=== PATIENT | female | born 2000 | race African-American/Black ===

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

== ENCOUNTER 2019-09-27 09:42 | Emergency (ER) | payer BC, OTHER ==
--- NOTE | 2019-09-27 11:02 | ED ---
Upper Extremity HPI - General Chief Complaint: Extremity Injury, Upper Stated Complaint: shoulder pain Time Seen by Provider: 09/27/19 10:06 Source: patient Mode of arrival: ambulatory Limitations: no limitations - History of Present Illness Initial Comments: Patient is a 19-year-old female presenting to the emergency Department with complaints of right shoulder pain since this morning. Patient states she woke up, stretched her arms overhead and felt a pop in her right shoulder. Patient states she went to put her shoulder down and felt another pop. Patient states she has pain in her right shoulder with any movement. She states the pain travels up into her right upper trapezius, right side of her neck. She denies any previous injuries or surgeries of her right shoulder. She is right-hand dominant. Denies any fever or chills. She has no further complaints. Upon arrival to the ER, her vitals are stable. - Related Data Home Medications Medication Instructions Recorded Confirmed Cetirizine HCl [Zyrtec] 10 mg PO DAILY PRN 08/20/13 08/02/17 Montelukast [Singulair] 10 mg PO DAILY 08/20/13 08/02/17 PARoxetine [Paxil] 10 mg PO DAILY 08/02/17 08/02/17 Previous Rx's Medication Instructions Recorded Cephalexin [Keflex] 500 mg PO Q6HR #40 cap 07/16/17 predniSONE [Deltasone] 20 mg PO BID #8 tab 08/03/17 Acetaminophen-Codeine 300-30mg 1 tab PO Q6H PRN 3 Days #12 tablet 09/30/18 [Tylenol w/codeine #3] hydrOXYzine HCL [Atarax] 25 mg PO QID PRN #30 tab 09/30/18 Allergies Allergy/AdvReac Type Severity Reaction Status Date / Time No Known Allergies Allergy Verified 09/27/19 10:04 Review of Systems ROS Statement: Those systems with pertinent positive or pertinent negative responses have been documented in the HPI. ROS Other: All systems not noted in ROS Statement are negative. Past Medical History Past Medical History: Asthma Additional Past Medical History / Comment(s): eczema, psoriasis History of Any Multi-Drug Resistant Organisms: MRSA Date of last positivie culture/infection: 07/16/17 MDRO Source:: LEG Past Surgical History: Adenoidectomy, Tonsillectomy Past Psychological History: ADD/ADHD, Anxiety Past Alcohol Use History: None Reported Past Drug Use History: None Reported General Exam - General Exam Comments Initial Comments: GENERAL: Patient is well-developed and well-nourished. Patient is nontoxic and in no acute distress. HEAD: Atraumatic, normocephalic. EYES: Pupils equal round and reactive to light, extraocular movements intact, sclera anicteric, conjunctiva are normal. Eyelids were unremarkable. ENT: TMs normal, nares patent, oropharynx clear without exudates. Moist mucous membranes. NECK: Normal range of motion, supple without lymphadenopathy or JVD. LUNGS: Unlabored respirations. Breath sounds clear to auscultation bilaterally and equal. No wheezes rales or rhonchi. HEART: Regular rate and rhythm without murmurs, rubs or gallops. ABDOMEN: Soft, nontender, normoactive bowel sounds. No guarding, no rebound. No masses appreciated. : Deferred MUSCULOSKELETAL: Normal extremities with adequate strength and normal range of motion, no pitting or edema. No clubbing or cyanosis. Patient has mild pain with palpation of the right upper trapezius, right cervical paraspinals, right posterior shoulder. NEUROLOGICAL: Patient is alert and oriented x 3. Motor and sensory are also intact. Cranial nerves II through XII grossly intact. Normal speech, normal gait. Symmetrical smile. PSYCH: Normal mood, normal affect. SKIN: Warm, Dry, normal turgor, no rashes or lesions noted. Limitations: no limitations Course Vital Signs 09/27/19 09/27/19 09/27/19 10:01 10:04 11:04 Temperature 98.5 F Pulse Rate 87 Respiratory 16 20 20 Rate Blood Pressure 125/83 O2 Sat by Pulse 98 Oximetry Medical Decision Making - Medical Decision Making Patient is a 19-year-old female with right shoulder pain after stretching this morning. No previous injuries or surgeries. X-rays reveal no acute fractures dislocations. Patient this is most likely muscle skeletal in nature. Recommen ded heat to the area, gentle stretching. She is stable for discharge and she is in agreement with this plan of care. Patient will follow up with her PCP if symptoms persist. Disposition Clinical Impression: Right shoulder strain Disposition: HOME SELF-CARE Condition: Stable Instructions (If sedation given, give patient instructions): Muscle Strain (ED) Additional Instructions: Please return to the Emergency Department if symptoms worsen or any other concerns. Use heat to the area, gentle stretching, Tylenol or Motrin as needed for discomfort. Is patient prescribed a controlled substance at d/c from ED?: No Referrals: None,Stated [Primary Care Provider] - 1-2 days
[2019-09-27 12:00] VITALS: BP 129/66; PULSE 72; RESP 18; TEMP 98.3
--- NOTE | 2019-09-27 12:31 | XR ---
EXAMINATION TYPE: XR shoulder complete RT DATE OF EXAM: 09/27/2019 CLINICAL HISTORY: Popping injury with pain. TECHNIQUE: Three views of the right shoulder are obtained. COMPARISON: None. FINDINGS: There is no acute fracture evident in the right shoulder. Inferior margin distal clavicle roughly 3 mm superior to inferior margin of distal acromion. Glenohumeral joint maintained. The visu alized ribs are intact and unremarkable. IMPRESSION: There is no acute fracture in the right shoulder. Possible AC joint subluxation injury.
== END 2019-09-27 12:00 | disposition home or self-care (01) ==
LOC: EC 09:42
DX: S46.911A Strain of unspecified muscle, fascia and tendon at shoulder and upper arm level, right arm, initial encounter (principal); J45.909 Unspecified asthma, uncomplicated; F41.9 Anxiety disorder, unspecified; Z79.899 Other long term (current) drug therapy; X50.1XXA Overexertion from prolonged static or awkward postures, initial encounter
CPT/HCPCS: 99283

== ENCOUNTER 2020-12-22 07:35 | Emergency (ER) | payer BC, OTHER ==
[2020-12-22 07:41] VITALS: BP 133/82; PULSE 69; RESP 20; TEMP 98.2
[2020-12-22] MEDS ORDERED: hydrOXYzine HCL 25 MG TAB PO STA (08:08)
[2020-12-22] MEDS ORDERED: methylPREDNISolone SOD SUCCI 125 MG/2 ML VIAL IM ONE (08:08)
--- NOTE | 2020-12-22 08:16 | ED ---
Skin/Abscess/FB HPI - General Chief complaint: Skin/Abscess/Foreign Body Stated complaint: Eczema Flare-Up Time Seen by Provider: 12/22/20 07:43 Source: patient, RN notes reviewed Mode of arrival: ambulatory Limitations: no limitations - History of Present Illness Initial comments: This a 20-year-old female presents emergency Department with chief complaint of eczema. Patient states she had a severe outbreak of last 3 weeks. Patient states that she was diagnosed years ago with psoriasis, eczema. Patient states that she's been using motions with no relief. Patient states that she has not seen anybody for this at this time. - Related Data Home Medications Medication Instructions Recorded Confirmed Cetirizine HCl [Zyrtec] 10 mg PO DAILY PRN 08/20/13 08/02/17 Montelukast [Singulair] 10 mg PO DAILY 08/20/13 08/02/17 PARoxetine [Paxil] 10 mg PO DAILY 08/02/17 08/02/17 Previous Rx's Medication Instructions Recorded Cephalexin [Keflex] 500 mg PO Q6HR #40 cap 07/16/17 predniSONE [Deltasone] 20 mg PO BID #8 tab 08/03/17 Acetaminophen-Codeine 300-30mg 1 tab PO Q6H PRN 3 Days #12 tablet 09/30/18 [Tylenol w/codeine #3] hydrOXYzine HCL [Atarax] 25 mg PO QID PRN #30 tab 09/30/18 hydrOXYzine HCL [Atarax] 25 mg PO TID PRN #15 tab 12/22/20 predniSONE 50 mg PO DAILY #5 tab 12/22/20 Allergies Allergy/AdvReac Type Severity Reaction Status Date / Time No Known Allergies Allergy Verified 12/22/20 07:41 Review of Systems ROS Statement: Those systems with pertinent positive or pertinent negative responses have been documented in the HPI. ROS Other: All systems not noted in ROS Statement are negative. Past Medical History Past Medical History: Asthma Additional Past Medical History / Comment(s): eczema, psoriasis History of Any Multi-Drug Resistant Organisms: MRSA Date of last positivie culture/infection: 07/16/17 MDRO Source:: LEG Past Surgical History: Adenoidectomy, Tonsillectomy Past Psychological History: ADD/ADHD, Anxiety Smoking Status: Never smoker Past Alcohol Use History: None Reported Past Drug Use History: None Reported General Exam Limitations: no limitations General appearance: alert, in no apparent distress Head exam: Present: atraumatic, normocephalic, normal inspection Respiratory exam: Present: normal lung sounds bilaterally. Absent: respiratory distress, wheezes, rales, rhonchi, stridor Cardiovascular Exam: Present: regular rate, normal rhythm, normal heart sounds. Absent: systolic murmur, diastolic murmur, rubs, gallop, clicks Neurological exam: Present: alert Skin exam: Present: warm, dry, intact, normal color, rash Course Vital Signs 12/22/20 07:37 Temperature 98.2 F Pulse Rate 69 Respiratory 20 Rate Blood Pressure 133/82 O2 Sat by Pulse 99 Oximetry Medical Decision Making - Medical Decision Making Patient was started on oral steroids advised follow-up with dermatology return parameters discussed. Disposition Clinical Impression: Eczema Disposition: HOME SELF-CARE Condition: Stable Instructions (If sedation given, give patient instructions): Eczema (ED) Additional Instructions: Please return to the Emergency Department if symptoms worsen or any other concerns. Prescriptions: hydrOXYzine HCL [Atarax] 25 mg PO TID PRN #15 tab PRN Reason: Itching predniSONE 50 mg PO DAILY #5 tab Is patient prescribed a controlled substance at d/c from ED?: No Referrals: None,Stated [Primary Care Provider] - 1-2 days Time of Disposition: 08:15
== END 2020-12-22 08:43 | disposition home or self-care (01) ==
LOC: EC 07:35
DX: L30.9 Dermatitis, unspecified (principal); J45.909 Unspecified asthma, uncomplicated; F90.9 Attention-deficit hyperactivity disorder, unspecified type; F41.9 Anxiety disorder, unspecified; Z90.89 Acquired absence of other organs
CPT/HCPCS: 99283; 96372; J2930

== ENCOUNTER 2021-07-21 00:09 | Emergency (ER) | payer OTHER ==
[2021-07-21] MEDS ORDERED: ACET/COD 300 MG/30 MG STARTER PACK 6 TAB BTL PO ONE (03:55)
[2021-07-21] MEDS ORDERED: Acetaminophen-Codeine 300-30mg TAB ONE (03:55)
--- NOTE | 2021-07-21 07:03 | XR ---
EXAM: XR Chest, 2 Views CLINICAL HISTORY: Left rib pain after chiropractor TECHNIQUE: Frontal and lateral views of the chest. COMPARISON: None FINDINGS: Hardware: None. Lungs/pleura: Normal. No focal consolidation. No pleural effusion or pneumothorax. Heart/mediastinum: Normal. No cardiomegaly. Soft tissues: Unremarkable. Bones: No acute fracture. Upper abdomen: Normal. IMPRESSION: No acute disease identified.
== END 2021-07-21 04:00 ==
LOC: EC 00:09
DX: S20.212A Contusion of left front wall of thorax, initial encounter (principal); J45.909 Unspecified asthma, uncomplicated; X58.XXXA Exposure to other specified factors, initial encounter
CPT/HCPCS: 71046; 99283

== ENCOUNTER 2021-11-24 16:29 | Emergency (ER) | payer OTHER ==
[2021-11-24 17:20] VITALS: TEMP 98
[2021-11-24] MEDS ORDERED: KETOROLAC 15 MG/ML 1 ML VIAL IM STA (17:27)
--- NOTE | 2021-11-24 20:16 | XR ---
EXAMINATION TYPE: XR ribs RT w pa chest xray DATE OF EXAM: 11/24/2021 COMPARISON: NONE HISTORY: Right rib pain TECHNIQUE: 5 views FINDINGS: Heart and mediastinum are normal. Lungs are clear. Diaphragm is normal. The right ribs appe ar intact. No pleural effusion or pneumothorax. No rib fracture seen. IMPRESSION: Normal chest. Normal right ribs.
--- NOTE | 2021-11-24 20:40 | ED ---
General Adult HPI - General Chief complaint: Back Pain/Injury Stated complaint: Rib pain Time Seen by Provider: 11/24/21 20:05 Source: patient, RN notes reviewed Mode of arrival: ambulatory Limitations: no limitations - History of Present Illness Initial comments: Patient is a 21-year-old -[place] female presenting to the emergency room with complaints of right-sided rib pain ongoing since a chiropractic adjustment approximately one week ago. She reports that the pain began right after the adjustment in his sharp stabbing in nature towards the upper part of her ribs into the scapular region. She denies any range of motion impairment. She does report some mild shortness of breath at times due to difficulty taking a deep breath secondary to the pain. She reports that this happened once before with the same chiropractor and he advised her that her ribs were "out of alignment" in that the pain should improve. He did not complete any x-rays at the time of adjustment or prior to. She denies any typical chest pain, shortness of breath not related to pain with inspiration, cough, abdominal pain, nausea, vomiting, fevers or chills. She is on to pick sent for severe eczema/psoriasis. She also has asthma and which she utilizes inhaler at times. - Related Data Home Medications Medication Instructions Recorded Confirmed Cetirizine HCl [Zyrtec] 10 mg PO DAILY PRN 08/20/13 08/02/17 Montelukast [Singulair] 10 mg PO DAILY 08/20/13 08/02/17 PARoxetine [Paxil] 10 mg PO DAILY 08/02/17 08/02/17 Previous Rx's Medication Instructions Recorded Cephalexin [Keflex] 500 mg PO Q6HR #40 cap 07/16/17 predniSONE [Deltasone] 20 mg PO BID #8 tab 08/03/17 Acetaminophen-Codeine 300-30mg 1 tab PO Q6H PRN 3 Days #12 tablet 09/30/18 [Tylenol w/codeine #3] hydrOXYzine HCL [Atarax] 25 mg PO QID PRN #30 tab 09/30/18 hydrOXYzine HCL [Atarax] 25 mg PO TID PRN #15 tab 12/22/20 predniSONE 50 mg PO DAILY #5 tab 12/22/20 Ibuprofen [Motrin] 800 mg PO Q8H PRN 7 Days #21 tab 11/24/21 Allergies Allergy/AdvReac Type Severity Reaction Status Date / Time No Known Allergies Allergy Verified 12/22/20 07:41 Review of Systems ROS Statement: Those systems with pertinent positive or pertinent negative responses have been documented in the HPI. ROS Other: All systems not noted in ROS Statement are negative. Past Medical History Past Medical History: Asthma Additional Past Medical History / Comment(s): eczema, psoriasis History of Any Multi-Drug Resistant Organisms: MRSA Date of last positivie culture/infection: 07/16/17 MDRO Source:: LEG Past Surgical History: Adenoidectomy, Tonsillectomy Past Psychological History: ADD/ADHD, Anxiety Smoking Status: Never smoker Past Alcohol Use History: None Reported Past Drug Use History: None Reported General Exam Limitations: no limitations Course Vital Signs 11/24/21 11/24/21 17:17 21:00 Temperature 98 F Pulse Rate 100 87 Respiratory 20 14 Rate Blood Pressure 144/80 145/97 O2 Sat by Pulse 99 100 Oximetry Medical Decision Making - Medical Decision Making 21-year-old -[place] female presenting to the emergency room with complaints of upper rib pain after chiropractic adjustment causing pain with inspiration creating increased shortness of breath. Will check chest x-ray including ribs and give Toradol for pain. Will monitor response and efficacy. Discussed chiropractic adjustment and previous response to adjustments. Pain improved with Toradol. X-ray of chest ribs negative for acute pathology. Findings discussed with patient and mother. Will discharge home with anti-inflammatory encouraged range of motion as tolerated and follow-up with her primary care provider. Encouraged possible alternative chiropractic therapy. Case discussed with Dr. Barrow. Disposition Clinical Impression: Rib pain on right side Disposition: HOME SELF-CARE Condition: Stable Instructions (If sedation given, give patient instructions): Costochondritis (ED) Additional Instructions: Please utilize ibuprofen as needed for pain. Range of motion as tolerated encouraged. Please follow-up with your primary care provider. Please return to the Emergency Department if symptoms worsen or any other concerns. Prescriptions: Ibuprofen [Motrin] 800 mg PO Q8H PRN 7 Days #21 tab PRN Reason: Pain Is patient prescribed a controlled substance at d/c from ED?: No Referrals: None,Stated [Primary Care Provider] - 1-2 days Time of Disposition: 21:11
[2021-11-24 21:00] VITALS: BP 145/97; PULSE 87; RESP 14
== END 2021-11-24 21:21 | disposition home or self-care (01) ==
LOC: EC 16:29
DX: R07.81 Pleurodynia (principal); J45.909 Unspecified asthma, uncomplicated
CPT/HCPCS: 71101; 99283; 96372; J1885

== ENCOUNTER → 2022-11-27 | Outpatient (CLI) | payer OTHER ==
[2022-11-27 20:44] LABS: Basophils # (A) 0.05 X 10*3/uL (0.00-0.10); Basophils % (A) 0.6 %; Eosinophils # (A) 1.58 X 10*3/uL (0.04-0.35); Eosinophils % (A) 20.3 %; HCT 39.5 % (37.2-46.3); HGB 12.4 d/dL (12.0-15.0); Lymphocytes # (A) 1.82 X 10*3/uL (0.90-5.00); Lymphocytes % (A) 23.4 %; MCH 25.8 pg (27.0-32.0); MCHC 31.4 d/dL (32.0-37.0); MCV 82.3 FL (80.0-97.0); Monocytes # (A) 0.62 X 10*3/uL (0.20-1.00); NRBC Per 100 WBC 0 X 10*3/uL (0.00-0.01); Neutrophils % (A) 47.6 %; Platelet Count 218 X 10*3/uL (140-440); RDW 14.9 % (11.5-14.5); WBC 7.78 X 10*3/uL (4.50-10.00)
[2022-11-27 21:24] LABS: ALT 29 U/L (8-44); AST 25 U/L (13-35); Albumin 4.3 d/dL (3.8-4.9); Albumin/Globulin Ratio 1.65 Ratio (1.60-3.17); Alkaline Phosphatase 85 U/L (41-126); BUN/Creat Ratio 16.12 Ratio (12.00-20.00); Blood Urea Nitrogen 12.9 mg/dL (9.0-27.0); Calcium 9.2 mg/dL (8.7-10.3); Carbon Dioxide 22.6 mmol/L (21.6-31.8); Chloride 107 mmol/L (96-109); Globulin 2.6 d/dL (1.6-3.3); Glucose 86 mg/dL (70-110); Potassium 4.4 mmol/L (3.5-5.5); Sodium 140 mmol/L (135-145); Total Bilirubin 0.3 mg/dL (0.3-1.2); Total Protein 6.9 d/dL (6.2-8.2)
[2022-11-27 22:29] LABS: Hepatitis A Antibody IgM Nonreactive; Hepatitis B Core IgM Nonreactive; Hepatitis B Surface Antigen Nonreactive; Hepatitis C IgG Antibody Nonreactive
== END | disposition home or self-care (01) ==
LOC: LABWHC1 15:04
PROVIDERS: ATTEND Dermatology
DX: L20.89 Other atopic dermatitis (principal); Z79.899 Other long term (current) drug therapy
CPT/HCPCS: 36415; 80053; 80074; 85025; 86480

== ENCOUNTER 2024-08-14 18:24 | Emergency (ER) | payer BC, OTHER ==
[2024-08-14 18:46] VITALS: BP 150/93; PULSE 87; RESP 16; TEMP 97.9
--- NOTE | 2024-08-14 19:48 | ED ---
Female Urogenital HPI - General Chief complaint: Urogenital Stated complaint: blood in urine Time Seen by Provider: 08/14/24 19:46 Source: patient, RN notes reviewed Mode of arrival: ambulatory Limitations: no limitations - History of Present Illness Initial comments: 24-year-old female presenting for hematuria x 1 day. Reports 3-4 episodes of blood near the end of urination today. Denies dysuria, urinary frequency, urinary urgency. Denies abdominal pain or flank pain. Denies vaginal bleeding or discharge. Last Menstrual Period: 08/06/24 - Related Data Home Medications Medication Instructions Recorded Confirmed Cetirizine HCl [Zyrtec] 10 mg PO DAILY PRN 08/20/13 08/02/17 Montelukast [Singulair] 10 mg PO DAILY 08/20/13 08/02/17 PARoxetine [Paxil] 10 mg PO DAILY 08/02/17 08/02/17 Previous Rx's Medication Instructions Recorded Cephalexin [Keflex] 500 mg PO Q6HR #40 cap 07/16/17 predniSONE [Deltasone] 20 mg PO BID #8 tab 08/03/17 Acetaminophen-Codeine 300-30mg 1 tab PO Q6H PRN 3 Days #12 tablet 09/30/18 [Tylenol w/codeine #3] hydrOXYzine HCL [Atarax] 25 mg PO QID PRN #30 tab 09/30/18 hydrOXYzine HCL [Atarax] 25 mg PO TID PRN #15 tab 12/22/20 predniSONE 50 mg PO DAILY #5 tab 12/22/20 Ibuprofen [Motrin] 800 mg PO Q8H PRN 7 Days #21 tab 11/24/21 Cephalexin [Keflex] 500 mg PO Q12H 7 Days #14 cap 08/14/24 Allergies Allergy/AdvReac Type Severity Reaction Status Date / Time No Known Allergies Allergy Verified 08/14/24 18:45 Review of Systems ROS Statement: Those systems with pertinent positive or pertinent negative responses have been documented in the HPI. ROS Other: All systems not noted in ROS Statement are negative. Past Medical History Past Medical History: Asthma Additional Past Medical History / Comment(s): eczema, psoriasis History of Any Multi-Drug Resistant Organisms: MRSA Date of last positivie culture/infection: 07/16/17 MDRO Source:: LEG Past Surgical History: Adenoidectomy, Tonsillectomy Past Psychological History: ADD/ADHD, Anxiety Smoking Status: Never smoker Past Alcohol Use History: None Reported Past Drug Use History: None Reported General Exam Limitations: no limitations General appearance: alert, in no apparent distress Head exam: Present: atraumatic, normocephalic, normal inspection GI/Abdominal exam: Present: soft, normal bowel sounds. Absent: distended, tenderness, guarding, rebound, rigid Back exam: Absent: CVA tenderness (R), CVA tenderness (L) Neurological exam: Present: alert, oriented X3 Psychiatric exam: Present: normal affect, normal mood Skin exam: Present: warm, dry, intact, normal color. Absent: rash Course Vital Signs 08/14/24 18:42 Temperature 97.9 F Pulse Rate 87 Respiratory 16 Rate Blood Pressure 150/93 O2 Sat by Pulse 100 Oximetry Medical Decision Making - Medical Decision Making Was pt. sent in by a medical professional or institution (, PA, MUSIC ARRANGER, urgent care, hospital, or intermediate...) When possible be specific @ -No Did you speak to anyone other than the patient for history (EMS, parent, family, police, friend...)? What history was obtained from this source @ -No Did you review nursing and triage notes (agree or disagree)? Why? @ -I reviewed and agree with nursing and triage notes Were old charts reviewed (outside hosp., previous admission, EMS record, old EKG, old radiological studies, urgent care reports/EKG's, intermediate records)? Report findings @ -No old charts were reviewed Differential Diagnosis (chest pain, altered mental status, abdominal pain women, abdominal pain men, vaginal bleeding, weakness, fever, dyspnea, syncope, headache, dizziness, GI bleed, back pain, seizure, CVA, palpatations, mental health, musculoskeletal)? @ -Urinary tract infection, kidney stone, interstitial nephritis, sexually transmitted infection EKG interpreted by me (3pts min.). @ -None X-rays interpreted by me (1pt min.). @ -None done CT interpreted by me (1pt min.). @ -None done U/S interpreted by me (1pt. min.). @ -None done What testing was considered but not performed or refused? (CT, X-rays, U/S, labs)? Why? @ -None What meds were considered but not given or refused? Why? @ -None Did you discuss the management of the patient with other professionals (professionals i.e. Dr., PA, MUSIC ARRANGER, lab, RT, psych nurse, social services director, clearance center manager, teacher, operational intelligence officer, case fitter)? Give summary @ -No Was smoking cessation discussed for >3mins.? @ -No Was critical care preformed (if so, how long)? @ -No Were there social determinants of health that impacted care today? How? (Homelessness, low income, unemployed, alcoholism, drug addiction, transportation, low edu. Level, literacy, decrease access to med. care, [facility], rehab)? @ -No Was there de-escalation of care discussed even if they declined (Discuss DNR or withdrawal of care, Hospice)? DNR status @ -No What co-morbidities impacted this encounter? (DM, HTN, Smoking, COPD, CAD, Cancer, CVA, ARF, Chemo, Hep., AIDS, mental health diagnosis, sleep apnea, morbid obesity)? @ -None Was patient admitted / discharged? Hospital course, mention meds given and route, prescriptions, significant lab abnormalities, going to OR and other pertinent info. @ -Discharge. 24-year-old female presenting for hematuria x 1 day. Denies urinary frequency, urgency, dysuria, abdominal pain, vaginal discharge, vaginal bleeding, or flank pain. Patient is afebrile with no CVA tenderness. Urina lysis remarkable for large amount of white blood cells and red blood cells and positive nitrite highly indicative of a urinary tract infection. Urine culture sent as well as urine chlamydia and urine gonorrhea. Patient will be provided with outpatient course of antibiotics. Appropriate return precautions and follow-up care discussed. Case was discussed with my ED attending Dr. Coy. Undiagnosed new problem with uncertain prognosis? @ -No Drug Therapy requiring intensive monitoring for toxicity (Heparin, Nitro, Insulin, Cardizem)? @ -No Were any procedures done? @ -No Diagnosis/symptom? @ -Urinary tract infection Acute, or Chronic, or Acute on Chronic? @ -Acute Uncomplicated (without systemic symptoms) or Complicated (systemic symptoms)? @ -Uncomplicated Side effects of treatment? @ -No Exacerbation, Progression, or Severe Exacerbation? @ -No Poses a threat to life or bodily function? How? (Chest pain, [place], [place], pneumonia, PE, COPD, DKA, ARF, appy, cholecystitis, CVA, Diverticulitis, Homicidal, Suicidal, threat to staff... and all critical care pts) @ -No - Lab Data Lab Results 08/14/24 08/14/24 Range/Units 20:19 20:19 Urine Color Yellow Urine Appearance Cloudy H (Clear) Urine pH 7.5 (5.0-8.0) Ur Specific [place] 1.025 (1.001-1.035) Urine Protein Trace H (Negative) Urine Glucose (UA) Negative (Negative) Urine Ketones Negative (Negative) Urine Blood Large H (Negative) Urine Nitrite Positive H (Negative) Urine Bilirubin Negative (Negative) Urine Urobilinogen 6.0 (<2.0) mg/dL Ur Leukocyte Esterase Moderate H (Negative) Urine RBC >182 H (0-5) /hpf Urine WBC 108 H (0-5) /hpf Ur Squamous Epith Cells 4 (0-4) /hpf Urine Bacteria Many H (None) /hpf Urine Mucus Moderate H (None) /hpf Urine HCG, Qual Not Detected (Not Detectd) Disposition Clinical Impression: Urinary tract infection Disposition: HOME SELF-CARE Condition: Stable Instructions (If sedation given, give patient instructions): Urinary Tract Infection in Women (ED) Additional Instructions: Take Keflex twice daily for 7 days. Drink plenty of fluids. Please return to the Emergency Department if symptoms worsen or any other concerns. Prescriptions: Cephalexin [Keflex] 500 mg PO Q12H 7 Days #14 cap Is patient prescribed a controlled substance at d/c from ED?: No Referrals: [facility] [NON-STAFF] - 1-2 days (Contact a primary care office to become established with a provider. ) [facility] [NON-STAFF] - 1-2 days None,Stated [Primary Care Provider] - 1-2 days Forms: Area PCPs Time of Disposition: 21:59
[2024-08-14 21:01] LABS: Appearance,Urine Cloudy (Clear); Bacteria,Urine Many /hpf; Bilirubin,Urine Negative (Negative); Blood,Urine Large (Negative); Color,Urine Yellow; Glucose,Urine (UA) Negative (Negative); Ketones,Urine Negative (Negative); Leukocyte Esterase,Urine Moderate (Negative); Mucus,Urine Moderate /hpf; Nitrite,Urine Positive (Negative); PH, Urine 7.5 (5.0-8.0); Protein,Urine Trace (Negative); RBC,Urine >182 /hpf (0-5); Specific Gravity,Urine 1.025 (1.001-1.035); Squamous Epithelial Cell,Urine 4 /hpf (0-4); WBC,Urine 108 /hpf (0-5)
[2024-08-14] MEDS: CEPHALEXIN 500 MG CAP PO STA (22:04)
[2024-08-17 13:33] LABS: C. trachomatis,PCR Negative (Negative); N. gonorrhoeae,PCR Negative (Negative)
== END 2024-08-14 22:04 | disposition home or self-care (01) ==
LOC: EC 18:24
DX: N39.0 Urinary tract infection, site not specified (principal); B96.89 Other specified bacterial agents as the cause of diseases classified elsewhere
CPT/HCPCS: 81001; 81025; 87077; 87086; 87186; 87491; 87591; 99283